=== PATIENT | female | born 1990 | race Caucasian/White ===

== ENCOUNTER 2018-08-13 10:17 | Emergency (ER) | payer MEDICAID ==
--- NOTE | 2018-08-13 10:26 | ER Document Report ---
ED Medical Screen (RME) - General Chief Complaint: OB Problem (<20wks) Stated Complaint: ABDOMINAL PAIN, VAGINAL BLEEDING Time Seen by Provider: 08/13/18 10:21 Primary Care Provider: ALYSIA SRIVASTAVA MD [ACTIVE STAFF] - Follow up as needed Mode of Arrival: Ambulatory Information source: Patient Notes: Patient presents emergency department with complaints of , vaginal bleeding started on . Wednesday she had some brownish discharge and today she woke up with large amount of vaginal bleeding. Patient is approximately 12 weeks . . Reports some abdominal cramping. Denies trauma. Denies pain with void. Denies other symptoms such as vomiting diarrhea. Current patient of [facility]. I have greeted and performed a rapid initial assessment of this patient. A comprehensive ED assessment and evaluation of the patient, analysis of test results and completion of the medical decision making process will be conducted by additional ED providers. Dictation of this chart was performed using voice recognition software; therefore, there may be some unintended grammatical errors. TRAVEL OUTSIDE OF THE [place] IN LAST 30 DAYS: No - Related Data Allergies/Adverse Reactions: No Known Allergies Allergy (Verified 08/13/18 10:17) Past Medical History - Social History Chew tobacco use (# tins/day): No Frequency of alcohol use: None Drug Abuse: None Pulmonary Medical History: Reports: Hx Asthma - as a child Renal/ Medical History: Denies: Hx Peritoneal Dialysis Physical Exam - Vital signs Vitals: Temp Pulse Resp BP Pulse Ox 98.1 F 88 16 124/62 100 08/13/18 10:21 08/13/18 10:21 08/13/18 10:21 08/13/18 10:21 08/13/18 10:21 Course - Vital Signs Vital signs: Temp Pulse Resp BP Pulse Ox 98.1 F 88 16 124/62 100 08/13/18 10:21 08/13/18 10:21 08/13/18 10:21 08/13/18 10:21 08/13/18 10:21 - Laboratory Result Diagrams: 08/13/18 10:30 08/13/18 10:30 Laboratory results interpreted by me: 08/13/18 08/13/18 08/13/18 10:30 10:30 10:30 RDW 15.6 H AST 46 H ALT 62 H Beta HCG, Quant 1123.80 H Urine Blood LARGE H Doctor's Discharge - Discharge Clinical Impression: demise Condition: Stable Disposition: HOME, SELF-CARE Additional Instructions: rest, return if symptoms worsen Referrals: ALYSIA SRIVASTAVA MD [ACTIVE STAFF] - Follow up as needed
[2018-08-13 10:37] VITALS: BP 124/62
[2018-08-13 10:52] LABS: ABSOLUTE EOSINOPHILS # (AUTO) 0.2 10^3/uL (0.0-0.6); ABSOLUTE LYMPHOCYTES (AUTO) 1.8 10^3/uL (0.5-4.7); ABSOLUTE MONOCYTES (AUTO) 0.9 10^3/uL (0.1-1.4); ABSOLUTE NEUT (AUTO) 5.8 10^3/uL (1.7-8.2); BASOPHILS % (AUTO) 0.4 % (0-2); EOSINOPHILS % (AUTO) 2.6 % (0-6); HEMATOCRIT 38.7 % (36.0-47.0); HEMOGLOBIN 12.8 g/dL (12.0-15.5); LYMPHOCYTES % (AUTO) 20.3 % (13-45); MEAN CORPUSCULAR HEMOGLOBIN 27.6 pg (27.0-33.4); MEAN CORPUSCULAR HGB CONC 32.9 g/dL (32.0-36.0); MEAN CORPUSCULAR VOLUME 84 fl (80-97); PLATELET COUNT 242 10^3/uL (150-450); RED BLOOD COUNT 4.62 10^6/uL (3.72-5.28); RED CELL DISTRIBUTION WIDTH 15.6 % (11.5-14.0); SEGMENTED NEUTROPHILS % (AUTO) 66.7 % (42-78); TOTAL CELLS COUNTED % (AUTO) 100 %; WHITE BLOOD COUNT 8.7 10^3/uL (4.0-10.5)
--- NOTE | 2018-08-13 10:58 | ER Document Report ---
ED GI/ - General Chief Complaint: OB Problem (<20wks) Stated Complaint: ABDOMINAL PAIN, VAGINAL BLEEDING Time Seen by Provider: 08/13/18 10:21 Primary Care Provider: ALYSIA SRIVASTAVA MD [ACTIVE STAFF] - Follow up as needed Mode of Arrival: Ambulatory Information source: Patient TRAVEL OUTSIDE OF THE [place] IN LAST 30 DAYS: No - HPI Patient complains to provider of: - pt is G3,P2 approx 12 weeks along who developed small amount of vaginal bleeding and abdominal cramping earlier this am - Related Data Allergies/Adverse Reactions: No Known Allergies Allergy (Verified 08/13/18 10:17) Past Medical History - General Information source: Patient - Social History Smoking Status: Never Smoker Chew tobacco use (# tins/day): No Frequency of alcohol use: None Drug Abuse: None Family History: None Patient has suicidal ideation: No Patient has homicidal ideation: No Pulmonary Medical History: Reports: Hx Asthma - as a child Renal/ Medical History: Denies: Hx Peritoneal Dialysis - Immunizations Hx Pneumococcal Vaccination: 03/13/13 Review of Systems - Review of Systems Constitutional: No symptoms reported EENT: No symptoms reported Cardiovascular: No symptoms reported Respiratory: No symptoms reported Gastrointestinal: No symptoms reported Genitourinary: See HPI Female Genitourinary: See HPI, , Vaginal bleeding Musculoskeletal: No symptoms reported Neurological/Psychological: No symptoms reported -: Yes All other systems reviewed and negative Physical Exam - Vital signs Vitals: Temp Pulse Resp BP Pulse Ox 98.1 F 88 16 124/62 100 08/13/18 10:21 08/13/18 10:21 08/13/18 10:21 08/13/18 10:21 08/13/18 10:21 - General General appearance: Appears well In distress: None - HEENT Mucous membranes: Normal Pharynx: Normal Neck: Normal - Respiratory Respiratory status: No respiratory distress Breath sounds: Normal - Cardiovascular Rhythm: Regular Heart sounds: Normal auscultation Murmur: No - Abdominal Inspection: Normal Distension: No distension Bowel sounds: Normal Tenderness: Nontender Organomegaly: No organomegaly - Genitourinary External exam: Other - deferred per pt's request Course - Re-evaluation Re-evalutation: 08/13/18 11:25 Pt seems to be taking the news as well as can be expected. She has phoned her - Vital Signs Vital signs: Temp Pulse Resp BP Pulse Ox 98.1 F 88 16 124/62 100 08/13/18 10:21 08/13/18 10:21 08/13/18 10:21 08/13/18 10:21 08/13/18 10:21 - Laboratory Result Diagrams: 08/13/18 10:30 08/13/18 10:30 Laboratory results interpreted by me: 08/13/18 08/13/18 10:30 10:30 RDW 15.6 H Urine Blood LARGE H - Diagnostic Test Radiology reviewed: Reports reviewed - demise - Consults lexi de la torre Time consulted: 11:26 Discharge - Discharge Clinical Impression: demise Condition: Stable Disposition: HOME, SELF-CARE Additional Instructions: rest, return if symptoms worsen Referrals: ALYSIA SRIVASTAVA MD [ACTIVE STAFF] - Follow up as needed
[2018-08-13 11:07] LABS: ALANINE AMINOTRANSFERASE 62 U/L (9-52); ALBUMIN 4.3 g/dL (3.5-5.0); ALKALINE PHOSPHATASE 65 U/L (38-126); ANION GAP 8 (5-19); ASPARTATE AMINO TRANSFERASE 46 U/L (14-36); BILIRUBIN,DIRECT 0.2 mg/dL (0.0-0.4); BILIRUBIN,TOTAL 0.7 mg/dL (0.2-1.3); BLOOD UREA NITROGEN 7 mg/dL (7-20); CALCIUM 9.7 mg/dL (8.4-10.2); CARBON DIOXIDE 28 mmol/L (22-30); CHLORIDE 104 mmol/L (98-107); GLUCOSE 79 mg/dL (75-110); SODIUM 140.3 mmol/L (137-145); TOTAL PROTEIN 7.2 g/dL (6.3-8.2)
[2018-08-13 11:11] LABS: URINE SPECIFIC GRAVITY 1.002
[2018-08-13 11:12] LABS: APPEARANCE,URINE CLEAR; BILIRUBIN,URINE NEGATIVE (NEGATIVE); COLOR,URINE STRAW; GLUCOSE, URINE NEGATIVE (NEGATIVE); KETONES,URINE NEGATIVE (NEGATIVE); LEUKOCYTE ESTERASE,URINE NEGATIVE (NEGATIVE); NITRITE,URINE NEGATIVE (NEGATIVE); PROTEIN,URINE NEGATIVE (NEGATIVE); UROBILINOGEN,URINE NEGATIVE mg/dL (<2.0)
--- NOTE | 2018-08-13 11:12 | RADIOLOGY REPORT (SQ) ---
EXAM DESCRIPTION: U/S [id number] TRNABD 1GES W/ODOP COMPLETED DATE/TIME: 08/13/2018 10:56 am REASON FOR STUDY: preg 12 weeks, cramping, vag bleed COMPARISON: No previous TECHNIQUE: Transabdominal static and realtime grayscale images acquired of the pelvis. Additional se lected spectral and color Doppler images recorded. All images stored on PACs. bHCG: Not available CLINICAL DATES: Last menses 05/16/2018 LIMITATIONS: None. FINDINGS: There is an intrauterine gestational sac sac containing an embryo. Embryo crown-rump karolina th measures 2.3 cm degenerating an estimated age of 9 weeks 0 days. There is no embryo cardiac activ ity on grayscale live scanning, color flow, or M-mode Doppler. This report was called to Dr. Shant rolle the emergency room, 1100 hours 08/13/2018. The the gestational sac is unusually large, 7.5 cm in greatest diameter. No subchorionic hemorrhage. Cervix is closed, 2.9 cm in size. UTERUS: Uterus is 10 x 7 x 8 cm in size. CERVICAL LENGTH: 3 cm in length, closed RIGHT ADNEXA: Normal ovary with normal vascular flow. Right ovary 2.3 x 1.9 x 1 cm in size No adnexal free fluid. No adnexal masses. LEFT ADNEXA: Normal ovary with normal vascular flow. Left ovary 3.4 x 1.6 x 1.4 cm in size No adnexal free fluid. No adnexal masses. FREE FLUID: None. OTHER: No other significant finding. IMPRESSION: Embryo demise. Report called to the emergency room as above. Trimester of : First - 0 to 13 weeks. COMMENT: Pertinent findings on the imaging study reported as a CRITICAL RESULT to emergency room at [facility] at11:06 on 08/13/2018. Category of Critical Result: Embryo demise TECHNICAL DOCUMENTATION: JOB ID: [id number] [employer]- All Rights Reserved Reading location - IP/workstation name: [email or web address]
== END 2018-08-13 11:31 | disposition home or self-care (01) ==
LOC: ER 10:17
DX: O02.1 Missed abortion (principal)
CPT/HCPCS: 36415; 76801; 80053; 81001; 84702; 85025; 86900; 86901; 99284

== ENCOUNTER → 2019-03-07 | Outpatient (CLI) | payer MEDICAID ==
--- NOTE | 2019-03-07 15:09 | RADIOLOGY REPORT (SQ) ---
EXAM DESCRIPTION: U/S [id number] TRNABD 1GES W/ODOP COMPLETED DATE/TIME: 03/07/2019 1:33 pm REASON FOR STUDY: Z34.81 ENCOUNTER FOR SUPRVSN OF NORMAL , FIRST TRIMESTER Z34.81 ENCOUNTE R FOR SUPRVSN OF NORMAL , FIRST TRIM COMPARISON: None. TECHNIQUE: Transvaginal static and realtime grayscale images acquired of the pelvis. Additional yovani cted spectral and color Doppler images recorded. All images stored on PACs. bHCG: Not available. CLINICAL DATES: 9 weeks 2 days LIMITATIONS: None. FINDINGS: FETUS: Single Living intrauterine . ULTRASOUND EGA: 9 weeks 4 days ULTRASOUND JAMES: 10/06/2019 EFW: Not applicable less than 20 weeks. CRL: 2.8 cm FHR: 168 beats per minute. SURVEY: No visualized anomalies. AMNIOTIC FLUID: Adequate amount. PLACENTA: Not yet developed due to early gestation. SUBCHORIONIC BLEED: No. SIZE OF BLEED: Not applicable. UTERUS: No masses. No anomalies. CERVICAL LENGTH: 2.3 cm. Closed. RIGHT ADNEXA: Normal ovary with normal vascular flow. No adnexal free fluid. No adnexal masses. LEFT ADNEXA: Normal ovary with normal vascular flow. No adnexal free fluid. No adnexal masses. FREE FLUID: None. OTHER: No other significant finding. IMPRESSION: LIVING INTRAUTERINE . EGA 9 weeks 4 days. Trimester of : First trimester - 0 to 13 weeks. TECHNICAL DOCUMENTATION: JOB ID: [id number] [employer]- All Rights Reserved rev-06/25 Reading location - IP/workstation name: [email or web address]
== END ==
LOC: RAD 12:59
PROVIDERS: ATTEND Midwife
DX: Z34.81 Encounter for supervision of other normal pregnancy, first trimester (principal)
CPT/HCPCS: 76801

== ENCOUNTER 2019-10-06 07:29 | Inpatient (IN) | payer MEDICAID ==
[2019-10-06] MEDS ORDERED: OXYTOCIN 10 UNIT/ML VIAL ONE (08:22)
[2019-10-06] MEDS ORDERED: MISOPROSTOL 0.2 MG TABLET ONE (08:23)
[2019-10-06] MEDS ORDERED: LIDOCAINE 1% INJ-PF (10 MG/ML) 30 ML SDV ONE (08:23)
[2019-10-06] MEDS ORDERED: RINGERS SOLUTION,LACTATED 1,000 ML IV PRN (08:23)
[2019-10-06] MEDS ORDERED: PENICILLIN G POTASSIUM 5,000,000 UNIT in DEXTROSE 5%-WATER 100 ML IV ONE (08:23)
[2019-10-06] MEDS ORDERED: OXYTOCIN/0.9 % SODIUM CHLORIDE 30 UNIT/500 ML RTUINJ IV PRN (08:23)
[2019-10-06] MEDS ORDERED: OXYTOCIN/0.9 % SODIUM CHLORIDE 30 UNIT/500 ML RTUINJ ONE (08:23)
[2019-10-06] MEDS ORDERED: PENICILLIN G-K 5 MILLION UNIT VIAL ONE (08:23)
[2019-10-06 08:49] LABS: APPEARANCE,URINE CLEAR; BILIRUBIN,URINE NEGATIVE (NEGATIVE); COLOR,URINE YELLOW; GLUCOSE, URINE NEGATIVE (NEGATIVE); KETONES,URINE NEGATIVE (NEGATIVE); LEUKOCYTE ESTERASE,URINE NEGATIVE (NEGATIVE); NITRITE,URINE NEGATIVE (NEGATIVE); PROTEIN,URINE NEGATIVE (NEGATIVE); URINE SPECIFIC GRAVITY 1.018; UROBILINOGEN,URINE NEGATIVE mg/dL (<2.0)
[2019-10-06 09:23] LABS: URINE AMPHETAMINES SCREEN NEGATIVE; URINE BARBITURATES SCREEN NEGATIVE; URINE BENZODIAZEPINES SCREEN NEGATIVE; URINE COCAINE SCREEN NEGATIVE; URINE METHADONE SCREEN NEGATIVE; URINE PHENCYCLIDINE SCREEN NEGATIVE
[2019-10-06 09:35] LABS: ABSOLUTE LYMPHOCYTES (AUTO) 1.6 10^3/uL (0.5-4.7); ABSOLUTE MONOCYTES (AUTO) 0.9 10^3/uL (0.1-1.4); ABSOLUTE NEUT (AUTO) 7.8 10^3/uL (1.7-8.2); BASOPHILS % (AUTO) 0.4 % (0-2); EOSINOPHILS % (AUTO) 0.4 % (0-6); HEMATOCRIT 28.9 % (36.0-47.0); HEMOGLOBIN 9.5 g/dL (12.0-15.5); LYMPHOCYTES % (AUTO) 15.3 % (13-45); MEAN CORPUSCULAR HEMOGLOBIN 24.5 pg (27.0-33.4); MEAN CORPUSCULAR VOLUME 74 fl (80-97); MONOCYTES % (AUTO) 8.6 % (3-13); PLATELET COUNT 193 10^3/uL (150-450); RED BLOOD COUNT 3.89 10^6/uL (3.72-5.28); RED CELL DISTRIBUTION WIDTH 16.9 % (11.5-14.0); SEGMENTED NEUTROPHILS % (AUTO) 75.3 % (42-78); TOTAL CELLS COUNTED % (AUTO) 100 %; WHITE BLOOD COUNT 10.4 10^3/uL (4.0-10.5)
[2019-10-06 09:36] LABS: URINE MARIJUANA (THC) SCREEN UNCONFIRMED POSITIVE
[2019-10-06] MEDS ORDERED: PENICILLIN G POTASSIUM 2,500,000 UNIT in DEXTROSE 5%-WATER 50 ML IV SCH (12:28)
--- NOTE | 2019-10-06 14:33 | Admission Physical ---
Datetime Report Generated by CPN: 10/06/2019 14:32 CURRENT ADMISSION Chief Complaint: Scheduled Induction of Labor Indication for Induction: IUGR Admit Impression : Term, Intrauterine Admit Plan: Admit to Unit; Initiate Labor Induction Protocol ALLERGIES Medication Allergies: No Medication Allergies: No Known Allergies (10/06/2019) Latex: No Latex Allergies OBSTETRICAL HISTORY EDC: 10/08/2019 00:00 : 4 Para: 2 Term: 2 : 0 SAB: 1 IAB: 0 Ectopic: 0 Livin Cesareans: 0 VBACs: 0 Multiple Births: 0 Gestational Diabetes: No Rh Sensitization: No Incompetent Cervix: No RUBY: No Infertility: No ART Treatment: No Uterine Anomaly: No IUGR: Yes Hx Previous C/S: No Macrosomia: No Hx Loss/Stillborn: No PIH: No Hx : No Placenta Previa/Abruption: No Depression/PP Depression: No PTL/PROM: No Post Hemorrhage: No Current Procedures: Ultrasound Obstetrical History Comments: G1-Vag term girl G2-Vag term girl G3-SAB G4-Current SEE RECORDS Alcohol: No Marijuana : No Cocaine: No Other Illicit Drugs: No Cigarettes: Never Smoker. [id number] MEDICAL HISTORY Diabetes: No Blood Transfusion: No Pulmonary Disease (Asthma, TB): Yes Breast Disease: No Hypertension: No Coremaker Helper Surgery: No Heart Disease: No Hosp/Surgery: Yes Autoimmune Disorder: No Anesthetic Complications: No Kidney Disease: No Abnormal Pap Smear: No Neuro/Epilepsy: No Psychiatric Disorders: No Other Medical Diseases: No Hepatitis/Liver Disease: No Significant Family History: No Varicosities/Phlebitis: No Trauma/Violence : No Thyroid Dysfunction: No Medical History Comments: Asthma, Childbirth x 2 INFECTIOUS HISTORY Gonorrhea: No Genital Herpes: No Chlamydia: No Tuberculosis: No Syphilis: No Hepatitis: No HIV/AIDS Exposure: No Rash or Viral Illness: No HPV: No PHYSICAL EXAM General: Normal HEENT: Normal Neurologic: Normal Thyroid: Deferred Heart: Normal Lungs: Normal Breast: Deferred Back: Normal Abdomen: Normal Genitourinary Exam: Normal Extremities: Normal DTRs: Deferred Pelvic Type: Adequate Vital Signs: Reviewed VAGINAL EXAM Dilatation: 4 Effacement: 80 Station: 0 Contraction Comments: none on admission MEMBRANES Pooling: Negative Membranes: Intact FETUS A EGA: 39.5 Monitoring: External US FHR- Baseline: 135 Variability: Moderate 6-25bpm Accelerations: 15X15 Decelerations: None FHR Category: Category I Estimated Weight (gm): 2700 Presentation: Vertex Admit Comment: late entry for 0900 today- admitted for IOL d/t suspected IUGR, GBS pos. Penicillin started. P: pitocin IOL, anticipate PLANS FOR LABOR AND DELIVERY Labor and Delivery: None Pain Management: None Feeding Preference: Breast Benefit of Breast Feed Discussed: Yes Circumcision: N/A INFORMED CONSENT Assignment: Shruthi Zamora MD Signature: with User ID: [email or web address] : with User ID: [email or web address]
--- NOTE | 2019-10-06 14:34 | Delivery Summary ---
Del Sum A-C Datetime Report Generated by CPN: 10/06/2019 14:33 DELIVERY PERSONNEL DELIVERY PERSONNEL: [id number] Delivery Doctor:: Odilia Polk CNM Labor and Delivery Nurse:: Ayana Bernard RNsupervisor floor assembly Nurse:: Kellie Oneil, RNC Nursery Nurse:: Sally Crooks, RN MATERNAL INFORMATION Delivery Anesthesia: None Medications After Delivery: Pitocin 30 Units in 500ml NS/D5W Delivery QBL: 100 Maternal Complications: None LABOR SUMMARY EDC: 10/08/2019 00:00 No. Babies in Womb: 1 Attempted: No Labor Anesthesia: None LABOR INFORMATION Reason for Induction: Intrauterine Growth Retardation Onset of Labor: 10/06/2019 12:00 Complete Dilatation: 10/06/2019 13:09 Oxytocin: Induction Group B Beta Strep: Positive Antibiotics # of Doses: 2 Antibiotics Time of Last Dose: 10/06/2019 12:27 Name of Antibiotic Given: Penicillin G Steroids Given: None Reason Steroids Not Administered: Not Applicable MEMBRANES Membranes Rupture Method: Artificial Rupture of Membranes: 10/06/2019 12:27 Length of Rupture (hr): 0.67 Amniotic Fluid Color: Clear Amniotic Fluid Amount: Small Amniotic Fluid Odor: Normal STAGES OF LABOR Stage 1 hr: 1 Stage 1 min: 9 Stage 2 hr: 0 Stage 2 min: -2 Stage 3 hr: 0 Stage 3 min: 7 Total Time in Labor hr: 1 Total Time in Labor min: 14 VAGINAL DELIVERY Episiotomy: None Laceration #1: Perineal Laceration Extension #1: First Degree Laceration Repair: Yes Sponge Count Correct: Yes Sharps Count Correct: Yes BABY A INFORMATION Infant Delivery Date/Time: 10/06/2019 13:07 Method of Delivery: Vaginal Nurse Controlled Delivery: No Born in Route : No : N/A Forceps: N/A Vacuum Extraction: N/A Shoulder Dystocia : No PRESENTATION/POSITION BABY A Presentation: Cephalic Cephalic Presentation: Vertex Vertex Position: Right Occipital Anterior Breech Presentation: N/A PLACENTA INFORMATION BABY A Placenta Delivery Time : 10/06/2019 13:14 Placenta Method of Delivery: Spontaneous Placenta Status: Delivered SCORES BABY A Heart Rate 1 min: >100 bpm Resp Effort 1 min: Good Cry Reflex Irritability 1 min: Cough or Sneeze or Pulls Away Muscle Tone 1 min: Active Motion Color 1 min: Blue/Pale SCORE 1 MIN: 8 Heart Rate 5 min: >100 bpm Resp Effort 5 min: Good Cry Reflex Irritability 5 min: Cough or Sneeze or Pulls Away Muscle Tone 5 min: Active Motion Color 5 min: Body [employer], Extremities Blue SCORE 5 MIN: 9 INFORMATION BABY A Gestational Age at Delivery: 39.5 Gestational Status: Full Term- 39- 40.6 Weeks Outcome : Liveborn Condition : Stable Sex: Female IDENTIFICATION BABY A Infant Verification Date/Time: 10/06/2019 13:35 ID Band Number: [id number] Mother's Name Verified: Yes RN Verifying : Lizet, RN and Ariadna Crooks RN WEIGHT/LENGTH BABY A Birthweight (gm): 2917 Weight (lb): 6 Infant Weight (oz): 7 Length (in): 18.50 Length (cm): 46.99 CORD INFORMATION BABY A No. Cord Vessels: 3 Nuchal Cord : Around Neck x1, Loose Cord Blood Taken: Yes-For Storage (Mom's Blood type +) Suction: None ASSESSMENT BABY A Complications: Multiple Variable Decels Physical Findings at Delivery: Within Normal Limits Respirations: Appears Normal Skin to Skin: No Skin to Skin Time (min): 65 Prevention Specialist/ALS Called : No Infant Care By: L Bursey RN Transferred To: Remains with Mother BABY B INFORMATION : N/A SIGNATURES : I was personally available for consultation and serving as supervising physician for the MLP.
--- NOTE | 2019-10-06 14:34 | Birth Certificate Data ---
Cert Data Datetime Report Generated by CPLazaro: 10/06/2019 14:33 CERTIFICATE DATA 47a. Care: Yes (10/06/2019 07:30:Kellie Oneil RN) 47b. Date of First Visit: 04/19/2019 00:00 (10/06/2019 07:30:Kellie Oneil RN) 47c. Date of Last Visit: 10/03/2019 00:00 (10/06/2019 07:30:Kellie Oneil RN) 47d. Number of Visits: 11 (10/06/2019 07:30:Kellie Oneil RN) 48a. Number of Prev Live Births: 2 (10/06/2019 07:30:Kellie Oneil RN) 48b. Now Livin (10/06/2019 07:30:Kellie Oneil RN) 48c. Live Births Now : 0 (10/06/2019 07:30:QS system process) 48d. Date of Last Live : 11/26/2015 00:00 (10/06/2019 07:30:Ayana JOSE ARMANDO Bernard) 48e. Losses: 1 (10/06/2019 07:30:Kellie Oneil RN) 48f. Date of Last Preg Loss: 08/13/2018 00:00 (10/06/2019 07:30:Kellie Oneil RN) RISK FACTORS IN THIS 49a. Diabetes: No (10/06/2019 07:30:Ayana Bernard RN) 49b. Hypertension: No (10/06/2019 07:30:Ayana Bernard RN) 49c. Previous Births: 0 (10/06/2019 07:30:Kellie Oneil RN) 49d. Stillborns: No (10/06/2019 07:30:Ayana Bernard RN) 49d. IUGR: Yes (10/06/2019 07:30:Ayana Bernard RN) 49e. Infertility Treatment: No (10/06/2019 07:30:Ayana Bernard RN) 49f. Previous Cesareans: 0 (10/06/2019 07:30:Kellie Oneil RN) Mother's Height 50b. Height Inches: 60 (10/06/2019 07:45:QS system process) Mother's Weight 51a. Pre- Weight (lbs): 130 (10/06/2019 07:30:Kellie Oneil RN) 51b. Weight at Delivery (lbs): 143 (10/06/2019 07:45:QS system process) 52. Dt Last Normal Menses Began: 01/01/2019 00:00 (10/06/2019 07:30:Kellie Oneil RN) Infections Present/Treated 53a. Gonorrhea: No (10/06/2019 07:30:Ayana Bernard RN) Results this Hospital Visit : Negative (10/06/2019 07:30:Ayana Bernard RN) 53b. Syphilis: No (10/06/2019 07:30:Ayana Bernard RN) Results this Hospital Visit: NONREACTIVE (10/06/2019 09:03:QS system process) 53c. Chlamydia: No (10/06/2019 07:30:Ayana Bernard RN) Results this Hospital Visit: Negative (10/06/2019 07:30:Ayana Bernard RN) 53d. Hepatitis B: No (10/06/2019 07:30:Ayana Bernard RN) Results this Hospital Visit: Negative (10/06/2019 07:30:Kellie Oneil RN) 53e. Hepatitis C: Negative (10/06/2019 07:30:Kellie Oneil RN) 53h. Mother Tested for HBsAG: Yes (10/06/2019 07:30:Ayana Bernard RN) 53i. Date Tested: 03/08/2019 00:00 (10/06/2019 07:30:Kellie Oneil RN) 53j. Test Result: Negative (10/06/2019 07:30:Kellie Oneil RN) Obstetric Procedures 54a, b, c. Obstetric Procedures: Ultrasound (10/06/2019 07:30:May JOSE ARMANDO Bernard) Cigarette Smoking 55a. 3 Months Before Preg - Ci (10/06/2019 07:30:Ayana Bernard RN) 55b. 1st Trimester of Preg- Ci (10/06/2019 07:30:May JOSE ARMANDO Bernard) 55c. 2nd Trimester of Preg- Ci (10/06/2019 07:30:Ayana Bernard RN) 55d. 3rd Trimester of Preg- Ci (10/06/2019 07:30:Ayana Bernard RN) Onset of Labor 56a. PROM >12 Hrs: 0.67 (10/06/2019 07:30:QS system process) 56b. Precipitous Labor <3 Hrs: 1 (10/06/2019 07:30:QS system process) 56c. Prolonged Labor > 20 Hrs: 1 (10/06/2019 07:30:QS system process) 57a. Induction of Labor: Induction (10/06/2019 07:30:May JOSE ARMANDO Bernard) 57c. Non-Vertex Presentation A: Vertex (10/06/2019 07:30:May JOSE ARMANDO Bernard) 57d. Steroids - Lung Mat: None (10/06/2019 07:30:Ayana Bernard RN) 57d. Steroids - Lung Mat: Not Applicable (10/06/2019 07:30:Ayana JOSE ARMANDO Bernard) 57e. Antibiotics During Labor: 10/06/2019 12:27 (10/06/2019 07:30:Ayana Bernard RN) 57f. Mat [place] or Temp >100.4: 98.9 (10/06/2019 07:30:Ayana Bernard RN) 57g. Moderate/Heavy Meconium: Clear (10/06/2019 12:16:Clotilde Esquivel RN) 57i. Epidural/Spinal Anesthesia: None (10/06/2019 07:30:Ayana Bernard RN) Method of Delivery 58a. Forceps - Unsuccessful A: N/A (10/06/2019 07:30:May JOSE ARMANDO Bernard) 58b. Vacuum - Unsuccessful A: N/A (10/06/2019 07:30:May JOSE ARMANDO Bernard) 58c. Presentation at 58c. Presentation at - A : Vertex (10/06/2019 07:30:Ayana JOSE ARMANDO Bernard) 58c. Presentation at - A : N/A (10/06/2019 07:30:Ayana Bernard RN) 58c. Presentation at - A : Cephalic (10/06/2019 07:30:Ayana Beranrd RN) Final Route and Method of Del 58d. Baby A Route/Delivery: Vaginal (10/06/2019 13:07:Ayana Bernard RN) 58e. Trial of Labor Attempted: No (10/06/2019 07:30:Ayana Bernard RN) 58e. Trial of Labor Attempted A: N/A (10/06/2019 07:30:Ayana Bernard RN) 58e. Trial of Labor Attempted B: N/A (10/06/2019 07:30:Ayana Bernard RN) Maternal Morbidity 59b. 3rd or 4th Degree Lacs: Perineal (10/06/2019 07:30:Ayana Bernard RN) 59b. 3rd or 4th Degree Lacs: First Degree (10/06/2019 07:30:Ayana Bernard RN) Birthweight Baby A: 2917 (10/06/2019 07:30:Ayana Feuston, RN) 60a. Pounds : 6 (10/06/2019 07:30:QS system process) 60b. Ounces: 7 (10/06/2019 07:30:QS system process) 61. GA at Delivery Baby A: 39.5 (10/06/2019 07:30:Ayana Feuston, RN) : Full Term- 39- 40.6 Weeks (10/06/2019 07:30:QS system process) 62a. 5 Minute Baby A: 9 (10/06/2019 07:30:QS system process)
[2019-10-06] MEDS ORDERED: IBUPROFEN 800 MG TABLET ONE (14:48)
[2019-10-06] MEDS ORDERED: DIPHENHYDRAMINE HCL 25 MG CAPSULE PO PRN (14:51)
[2019-10-06] MEDS ORDERED: ACETAMINOPHEN 650 MG SUPP.RECT PR PRN (14:51)
[2019-10-06] MEDS ORDERED: PROMETHAZINE HCL INJ 25 MG/1 ML VIAL IV PRN (14:51)
[2019-10-06] MEDS ORDERED: DIPH/PERTUSS(ACELL)/TETANUS VAC/PF 0.5 ML SYR (>=10YO) IM PRN (14:51)
[2019-10-06] MEDS ORDERED: MAGNESIUM HYDROXIDE SUSP 30 ML UDCUP PO PRN (14:51)
[2019-10-06] MEDS ORDERED: GLYCERIN/WITCH HAZEL LEAF 1 EACH MED..WIPE TP PRN (14:51)
[2019-10-06] MEDS ORDERED: NA PHOS,M-B/NA PHOS,DI-BA (ADULT) 133 ML ENEMA PR PRN (14:51)
[2019-10-06] MEDS ORDERED: BENZOCAINE/MENTHOL AEROSOL SPRAY 56 ML TOP PRN (14:51)
[2019-10-06] MEDS ORDERED: PSEUDOEPHEDRINE HCL 30 MG TABLET PO PRN (14:51)
[2019-10-06] MEDS ORDERED: MEASLES,MUMPS&RUBELLA VACC/PF 0.5 ML VIAL SUBCUT PRN (14:51)
[2019-10-06] MEDS ORDERED: ZOLPIDEM TARTRATE 5 MG TABLET PO PRN (14:51)
[2019-10-06] MEDS ORDERED: PROMETHAZINE HCL 25 MG TABLET PO PRN (14:51)
[2019-10-06] MEDS ORDERED: PROMETHAZINE HCL 25 MG SUPP.RECT PR PRN (14:51)
[2019-10-06] MEDS ORDERED: ACETAMINOPHEN WITH CODEINE #3 TABLET PO PRN ×2 (14:51)
[2019-10-06] MEDS ORDERED: DIBUCAINE 1% OINTMENT 28 GM TP PRN (14:51)
[2019-10-06] MEDS: FERROUS SULFATE 325 MG TABLET PO SCH (17:36)
[2019-10-06] MEDS: DOCUSATE SODIUM 100 MG CAPSULE PO SCH (17:36)
[2019-10-06] MEDS: FAMOTIDINE 20 MG TABLET PO SCH (22:51)
[2019-10-06] MEDS: IBUPROFEN 800 MG TABLET PO SCH (22:51)
[2019-10-07] MEDS: IBUPROFEN 800 MG TABLET PO SCH ×3 (05:23→21:06)
[2019-10-07 07:43] LABS: HEMOGLOBIN 10.1 g/dL (12.0-15.5); MEAN CORPUSCULAR HEMOGLOBIN 24.4 pg (27.0-33.4); MEAN CORPUSCULAR HGB CONC 32.5 g/dL (32.0-36.0); MEAN CORPUSCULAR VOLUME 75 fl (80-97); PLATELET COUNT 200 10^3/uL (150-450); RED BLOOD COUNT 4.13 10^6/uL (3.72-5.28); WHITE BLOOD COUNT 9.9 10^3/uL (4.0-10.5)
[2019-10-07] MEDS: SENNOSIDES/DOCUSATE 8.6-50 MG 1 EACH TABLET PO SCH (10:08)
[2019-10-07] MEDS: PRENATAL VITAMIN W DHA CAPSULE PO SCH (10:08)
[2019-10-07] MEDS: DOCUSATE SODIUM 100 MG CAPSULE PO SCH ×2 (10:08→17:38)
[2019-10-07] MEDS: FERROUS SULFATE 325 MG TABLET PO SCH ×2 (10:08→17:38)
[2019-10-07] MEDS: FAMOTIDINE 20 MG TABLET PO SCH ×2 (10:08→21:06)
--- NOTE | 2019-10-07 12:50 | PDOC PROGRESS REPORT ---
Subjective-OB Progress Note for:: 10/07/19 Subjective: reports bleeding slowing, pain controlled with current meds. denies needs Physical Exam (OB) Vital Signs: Temp Pulse Resp BP Pulse Ox 97.4 F 72 18 106/66 100 10/07/19 10:18 10/07/19 07:16 10/07/19 07:16 10/07/19 07:16 10/07/19 07:16 Intake & Output 10/06/19 10/07/19 10/08/19 06:59 06:59 06:59 Intake Total 1490 Balance 1490 Weight 64.9 kg - Maternal Morbidity 59. Maternal Morbidity (serious complications experinced by the mother associated with labor and delivery: None of the above - Abdomen Description: Soft Hernia Present: No Fundal Description: Firm, Midline Fundal Height: u/u - u/2 - Abdominal Distension: No distension Tenderness: Nontender - Extremities Lower extremities: Danelle's sign Calf: Normal, Nontender Objective-Diagnostic Laboratory: 10/07/19 07:19 10/07/19 07:19 WBC 9.9 RBC 4.13 Hgb 10.1 L Hct 31.0 L MCV 75 L MCH 24.4 L MCHC 32.5 RDW 17.0 H Plt Count 200 Assessment and Plan(PN) - Assessment and Plan (1) growth restriction Is this a current diagnosis for this admission?: Yes (2) Obstetrical laceration, first degree Is this a current diagnosis for this admission?: Yes (3) Vaginal delivery Is this a current diagnosis for this admission?: Yes - Time Spent with Patient Time with patient: Less than 15 minutes - Disposition Anticipated Discharge Disposition: Home, Self Care Anticipated Discharge Timeframe: within 24 hours
[2019-10-08] MEDS: IBUPROFEN 800 MG TABLET PO SCH (06:15)
[2019-10-08 07:54] VITALS: BP 103/65
[2019-10-08] MEDS: FERROUS SULFATE 325 MG TABLET PO SCH (10:12)
[2019-10-08] MEDS: FAMOTIDINE 20 MG TABLET PO SCH (10:12)
[2019-10-08] MEDS: SENNOSIDES/DOCUSATE 8.6-50 MG 1 EACH TABLET PO SCH (10:12)
[2019-10-08] MEDS: DOCUSATE SODIUM 100 MG CAPSULE PO SCH (10:12)
[2019-10-08] MEDS: PRENATAL VITAMIN W DHA CAPSULE PO SCH (10:12)
--- NOTE | 2019-10-08 12:21 | PDOC DISCHARGE SUMMARY ---
Impression - Admit/DC Date/PCP Admission Date/Primary Care Provider: 10/06/19 07:29 JANELL SANCHEZ MD Discharge Date: 10/08/19 - Discharge Diagnosis (1) growth restriction Is this a current diagnosis for this admission?: Yes (2) Obstetrical laceration, first degree Is this a current diagnosis for this admission?: Yes (3) Vaginal delivery Is this a current diagnosis for this admission?: Yes (4) Encounter for induction of labor Is this a current diagnosis for this admission?: Yes - Additional Information Discharge Diet: Regular Discharge Activity: Balance Activity w/Rest, Pelvic Rest Referrals: JANELL SANCHEZ MD [Primary Care Provider] - Prescriptions: Ibuprofen [Motrin 800 mg Tablet] 800 mg PO Q8HP PRN #60 tablet PRN Reason: Home Medications: Albuterol Sulfate [Proair HFA Inhalation Aerosol 8.5 gm MDI] 2 puff PO Q4 PRN 03/10/13 Pnv with Ca,No.71/Iron/FA [ Vitamin Tablet] 1 tab PO DAILY 03/10/13 Ibuprofen [Motrin 800 mg Tablet] 800 mg PO Q8HP PRN #60 tablet 10/08/19 Hospital Course 59. Maternal Morbidity (serious complications experinced by the mother associated with labor and delivery: None of the above Results Laboratory Results: WBC 9.9 10^3/uL (4.0-10.5) 10/07/19 07:19 RBC 4.13 10^6/uL (3.72-5.28) 10/07/19 07:19 Hgb 10.1 g/dL (12.0-15.5) L 10/07/19 07:19 Hct 31.0 % (36.0-47.0) L 10/07/19 07:19 MCV 75 fl (80-97) L 10/07/19 07:19 MCH 24.4 pg (27.0-33.4) L 10/07/19 07:19 MCHC 32.5 g/dL (32.0-36.0) 10/07/19 07:19 RDW 17.0 % (11.5-14.0) H 10/07/19 07:19 Plt Count 200 10^3/uL (150-450) 10/07/19 07:19 Lymph % (Auto) 15.3 % (13-45) 10/06/19 09:03 [place] % (Auto) 8.6 % (3-13) 10/06/19 09:03 Eos % (Auto) 0.4 % (0-6) 10/06/19 09:03 Baso % (Auto) 0.4 % (0-2) 10/06/19 09:03 Absolute Neuts (auto) 7.8 10^3/uL (1.7-8.2) 10/06/19 09:03 Absolute Lymphs (auto) 1.6 10^3/uL (0.5-4.7) 10/06/19 09:03 Absolute Monos (auto) 0.9 10^3/uL (0.1-1.4) 10/06/19 09:03 Absolute Eos (auto) 0.0 10^3/uL (0.0-0.6) 10/06/19 09:03 Absolute Basos (auto) 0.0 10^3/uL (0.0-0.2) 10/06/19 09:03 Seg Neutrophils % 75.3 % (42-78) 10/06/19 09:03 Urine Color YELLOW 10/06/19 07:39 Urine Appearance CLEAR 10/06/19 07:39 Urine pH 6.0 (5.0-9.0) 10/06/19 07:39 Ur Specific Post 1.018 10/06/19 07:39 Urine Protein NEGATIVE mg/dL (NEGATIVE) 10/06/19 07:39 Urine Glucose (UA) NEGATIVE mg/dL (NEGATIVE) 10/06/19 07:39 Urine Ketones NEGATIVE mg/dL (NEGATIVE) 10/06/19 07:39 Urine Blood NEGATIVE (NEGATIVE) 10/06/19 07:39 Urine Nitrite NEGATIVE (NEGATIVE) 10/06/19 07:39 Urine Bilirubin NEGATIVE (NEGATIVE) 10/06/19 07:39 Urine Urobilinogen NEGATIVE mg/dL (<2.0) 10/06/19 07:39 Ur Leukocyte Esterase NEGATIVE (NEGATIVE) 10/06/19 07:39 Urine Ascorbic Acid NEGATIVE (NEGATIVE) 10/06/19 07:39 Urine Opiates Screen NEGATIVE 10/06/19 07:39 Urine Methadone Screen NEGATIVE 10/06/19 07:39 Ur Barbiturates Screen NEGATIVE 10/06/19 07:39 Ur Phencyclidine Scrn NEGATIVE 10/06/19 07:39 Ur Amphetamines Screen NEGATIVE 10/06/19 07:39 U Benzodiazepines Scrn NEGATIVE 10/06/19 07:39 Urine Cocaine Screen NEGATIVE 10/06/19 07:39 U Marijuana (THC) Screen UNCONFIRMED POSITIVE 10/06/19 07:39 RPR NONREACTIVE (NONREACTIVE) 10/06/19 09:03 Blood Type A POSITIVE 10/06/19 09:03 Antibody Screen NEGATIVE 10/06/19 09:03 Plan Plan of Treatment: follow up in 4 weeks at [facility] for post check
== END 2019-10-08 16:30 | disposition home or self-care (01) | DRG 807 ==
LOC: LR 07:29 → 2S 15:27
PROVIDERS: ADMIT Student in an Organized Health Care Education/Training Program; ATTEND Student in an Organized Health Care Education/Training Program
PROC: 10907ZC Drainage of Amniotic Fluid, Therapeutic from Products of Conception, Via Natural or Artificial Opening (ICD-10-PCS; 2019-10-06)
PROC: 3E033VJ Introduction of Other Hormone into Peripheral Vein, Percutaneous Approach (ICD-10-PCS; 2019-10-06)
PROC: 10E0XZZ Delivery of Products of Conception, External Approach (ICD-10-PCS; principal; 2019-10-07)
DX: O36.5930 Maternal care for other known or suspected poor fetal growth, third trimester, not applicable or unspecified (principal); Z37.0 Single live birth; O77.9 Labor and delivery complicated by fetal stress, unspecified; O70.0 First degree perineal laceration during delivery; O99.824 Streptococcus B carrier state complicating childbirth; O69.81X0 Labor and delivery complicated by cord around neck, without compression, not applicable or unspecified; Z3A.39 39 weeks gestation of pregnancy
CPT/HCPCS: 36415; 80307; 80349; 81005; 85025; 85027; 86592; 86850; 86900; 86901; G0480; J2540; J2590; J3490; J7060